=== PATIENT | female | born 1955 | race Caucasian/White ===

== ENCOUNTER 2018-07-17 11:10 | Outpatient (CLI) | payer MEDICARE, OTHER ==
--- NOTE | 2018-07-17 16:51 | PET ---
NUCLEAR MEDICINE FDG PET CT WHOLE BODY: (Positron Emission Tomography) DATE: 07/17/18 HISTORY: 63-year-old female with ICD-10: R91.1: solitary pulmonary nodule. COMPARISON: No prior PET scans. No prior chest CTs. There are prior chest radiographs of 01/03/17 and 12/01/16. TECHNIQUE: IV injection F-18 Fluorodeoxyglucose (FDG) dose: 14 mCi Whole body PET and attenuation-correction CT performed from skull base to proximal thighs. FINDINGS: SUV (standard uptake value) numbers given are maximum SUV's: The given history is solitary pulmonary nodule of the right lung. The attenuation correction CT image s demonstrate a left sided pulmonary nodule, as demonstrated on prior chest CT from [facility]. It is not FDG-avid. There is a unilateral right breast implant. There is no abnormal hypermetabolic activity in the neck, chest, abdomen, or pelvis. Uterus is surgically absent. No ascit es, pleural effusion, or pneumothorax. IMPRESSION: 1. Negative. No pulmonary nodule and no FDG-avid suspicious lesions. 2. Unilateral right breast implant. 3. Status post hysterectomy. GEMA Ha POS: IZAIAH
== END 2018-07-17 11:11 | disposition home or self-care (01) ==
LOC: PET 11:10
PROVIDERS: ATTEND Internal Medicine Pulmonary Disease
DX: R91.1 Solitary pulmonary nodule (principal); Z90.710 Acquired absence of both cervix and uterus; Z98.82 Breast implant status
CPT/HCPCS: 78815; A9552

== ENCOUNTER 2019-08-19 09:05 | Outpatient (CLI) | payer MEDICARE ==
--- NOTE | 2019-08-19 09:58 | MMO ---
Bilateral MAMMO Bilat Diag [facility]. CLINICAL HISTORY: Patient is 64 years old and is seen for diagnostic exam. The patient has a history of right Stereotatic Biopsy in 2007 - malignant and right Mastectomy in 2007 - malignant. VIEWS: The views performed were: left mediolateral oblique with tomosynthesis; left craniocaudal with tomosynthesis; left mediolateral with tomosynthesis; right craniocaudal; right mediolateral; and right mediolateral oblique. FILMS COMPARED: The present examination has been compared to prior imaging studies performed at [facility] on 03/09/2014, 02/15/2015, 03/16/2016 and 08/12/2017. This study has been interpreted with the assistance of computer-aided detection. MAMMOGRAM FINDINGS: There are scattered fibroglandular densities. Finding 1: Normal right breast implant. Finding 2: There are benign appearing calcifications seen in the left breast. There are no suspicious masses, suspicious calcifications, or new areas of architectural distortion. IMPRESSION: THERE IS NO MAMMOGRAPHIC EVIDENCE OF MALIGNANCY. A ROUTINE FOLLOW-UP MAMMOGRAM IN 1 YEAR IS RECOMMENDED. THE RESULTS OF THIS EXAM WERE SENT TO THE PATIENT. ACR BI-RADS Category 2 - Benign finding MAMMOGRAPHY NOTE: 1. A negative mammogram report should not delay a biopsy if a dominant of clinically suspicious mass is present. 2. Approximately 10% to 15% of breast cancers are not detected by mammography. 3. Adenosis and dense breasts may obscure an underlying neoplasm. Reported by: ELVIN AMARO MD Electonically Signed: [id number]
== END 2019-08-19 09:06 | disposition home or self-care (01) ==
LOC: BICMAMMO 09:05
PROVIDERS: ATTEND Family Medicine
DX: Z12.31 Encounter for screening mammogram for malignant neoplasm of breast (principal); Z85.3 Personal history of malignant neoplasm of breast
CPT/HCPCS: 77066; G0279; 77063; 77067

== ENCOUNTER 2022-07-30 08:52 | Outpatient (CLI) | payer MEDICARE, OTHER | END 2022-07-30 08:53 | disposition home or self-care (01) | LOC: RAD 08:52 | PROVIDERS: ATTEND Internal Medicine Gastroenterology | DX: R13.10 Dysphagia, unspecified (principal); R63.4 Abnormal weight loss; R12 Heartburn; K22.4 Dyskinesia of esophagus; Z86.010 Personal history of colon polyps | CPT/HCPCS: 74220 ==

== ENCOUNTER → 2022-11-07 | Day surgery (SDC) | payer MEDICARE, OTHER ==
[~2022-11-07] MED LIST: Lidocaine Jelly 2% Urojet 10 ML ONE
== END ==
LOC: SDC 12:41
PROVIDERS: ATTEND Internal Medicine Gastroenterology
DX: K22.4 Dyskinesia of esophagus (principal); K21.00 Gastro-esophageal reflux disease with esophagitis, without bleeding; M19.90 Unspecified osteoarthritis, unspecified site; J45.909 Unspecified asthma, uncomplicated; Z86.010 Personal history of colon polyps; Z79.899 Other long term (current) drug therapy; Z88.2 Allergy status to sulfonamides; Z88.5 Allergy status to narcotic agent; Z88.7 Allergy status to serum and vaccine; Z88.8 Allergy status to other drugs, medicaments and biological substances; Z91.048 Other nonmedicinal substance allergy status
CPT/HCPCS: 91010; J2001

== ENCOUNTER 2024-01-02 09:37 | Outpatient (CLI) | payer MEDICARE, OTHER | END 2024-01-02 09:38 | disposition home or self-care (01) | LOC: BICMAMMO 09:37 | PROVIDERS: ATTEND Advanced Practice Midwife | DX: Z12.31 Encounter for screening mammogram for malignant neoplasm of breast (principal); Z80.3 Family history of malignant neoplasm of breast; Z98.82 Breast implant status; Z90.11 Acquired absence of right breast and nipple | CPT/HCPCS: 77063; 77067 ==

== ENCOUNTER 2024-03-09 10:38 | Emergency (ER) | payer MEDICARE, OTHER ==
[2024-03-09 11:22] LABS: #Basophils 0.05 10x3/uL (0.0-0.2); %Basophils 0.8 % (0.0-1.0); %Eosinophils 3.2 % (0.0-10.0); %Lymphocytes 26.7 % (21.0-51.0); %Neutrophils 60.8 % (42.0-75.0); Hemoglobin 15.1 g/dL (12.0-16.0); Mean Corpuscular HGB CONC 32.1 g/dL (32.0-36.0); Mean Corpuscular Volume 87.2 fL (78.0-98.0); Mean Platelet Volume 10.1 fL (7.4-10.4); Platelet Count 232 10x3/uL (130-400); RBC Distribution Width 12.4 % (11.5-14.5); Red Blood Cell (RBC) Count 5.39 mill/uL (4.20-5.40)
[2024-03-09] MEDS ORDERED: Acetaminophen 500 MG TAB ONE (11:27)
[2024-03-09 11:45] LABS: ALT (SGPT) 17 U/L (8-55); AST (SGOT) 16 U/L (5-34); Albumin 3.9 g/dL (3.4-4.8); Alkaline Phosphatase 82 U/L (40-110); Anion Gap 15 mmol/L (10-20); BUN (Urea Nitrogen) 17 mg/dL (9.8-20.1); Bilirubin, Total 0.4 mg/dL (0.2-1.2); Calc. Creatinine Clearance 0 mL/min (70-130); Calcium 10.2 mg/dL (7.8-10.44); Carbon Dioxide 27 mmol/L (23-31); Chloride 104 mmol/L (98-107); Estimated GFR 90; Globulin 3.6 g/dL (2.4-3.5); Glucose 96 mg/dL (80-115); Potassium 4.3 mmol/L (3.5-5.1); Protein, Total 7.5 g/dL (5.8-8.1); Sodium 142 mmol/L (136-145)
[2024-03-09] MEDS ORDERED: Iopamidol-370 76% 500 ML MDV (1 ML CHARGE) ONE (15:14)
== END 2024-03-09 13:15 | disposition home or self-care (01) ==
LOC: ERS 10:38
DX: S30.1XXA Contusion of abdominal wall, initial encounter (principal); R03.0 Elevated blood-pressure reading, without diagnosis of hypertension; E11.9 Type 2 diabetes mellitus without complications; V49.9XXA Car occupant (driver) (passenger) injured in unspecified traffic accident, initial encounter; W22.10XA Striking against or struck by unspecified automobile airbag, initial encounter
CPT/HCPCS: 36415; 70450; 71260; 72125; 74177; 80053; 85025; 94760; Q9967

== ENCOUNTER 2024-03-19 13:12 | Outpatient (CLI) | payer MEDICARE, OTHER | END 2024-03-19 13:13 | disposition home or self-care (01) | LOC: BICMAMMO 13:12 | PROVIDERS: ATTEND Registered Nurse Hospice | DX: Z13.820 Encounter for screening for osteoporosis (principal); Z78.0 Asymptomatic menopausal state | CPT/HCPCS: 77080 ==

== ENCOUNTER 2025-04-14 10:19 | Outpatient (CLI) | payer MEDICARE, OTHER | END 2025-04-14 10:20 | disposition home or self-care (01) | LOC: BICMAMMO 10:19 | PROVIDERS: ATTEND Nurse Practitioner Family | DX: Z12.31 Encounter for screening mammogram for malignant neoplasm of breast (principal); Z80.3 Family history of malignant neoplasm of breast; Z90.11 Acquired absence of right breast and nipple; Z98.82 Breast implant status | CPT/HCPCS: 77063; 77067 ==